=== PATIENT | male | born 1980 | race African-American/Black ===

== ENCOUNTER 2016-09-06 11:56 | Emergency (ER) | payer MEDICARE ==
[~2016-09-06 11:56] MED LIST: AMOXIL500 MG PO; MOTRIN800 MG PO; PHENERGAN W/DM120 ML PO; PREDNISONE10 MG PO; TOBREX OPHTH S2.5 ML OPH
[2016-09-06] MEDS ORDERED: NAPROSYN500 MG PO (12:06)
== END 2016-09-06 13:46 | disposition home or self-care (01) ==
LOC: ED 11:56
DX: S46.911A Strain of unspecified muscle, fascia and tendon at shoulder and upper arm level, right arm, initial encounter (principal); R03.0 Elevated blood-pressure reading, without diagnosis of hypertension; F17.200 Nicotine dependence, unspecified, uncomplicated; X58.XXXA Exposure to other specified factors, initial encounter; Y93.89 Activity, other specified; Y92.9 Unspecified place or not applicable; Y99.9 Unspecified external cause status

== ENCOUNTER 2016-12-21 20:16 | Emergency (ER) | payer MEDICARE ==
[~2016-12-21] VITALS: Ht 175.2 cm; Wt 77.1 kg
[~2016-12-21 20:16] MED LIST changes: +NAPROSYN500 MG PO
[2016-12-21] MEDS ORDERED: KENALOG 0.1%80 GM T (20:45)
[2016-12-21] MEDS ORDERED: ATARAX,VISTARIL50 MG PO (20:45)
== END 2016-12-21 20:47 | disposition home or self-care (01) ==
LOC: ED 20:16
DX: L25.9 Unspecified contact dermatitis, unspecified cause (principal); F17.200 Nicotine dependence, unspecified, uncomplicated

== ENCOUNTER 2020-01-12 15:42 | Emergency (ER) | payer SELFPAY ==
[~2020-01-12] VITALS: Ht 175.2 cm; Wt 74.8 kg
[~2020-01-12 15:42] MED LIST changes: +ATARAX,VISTARIL50 MG PO; +KENALOG 0.1%80 GM T
[2020-01-12] MEDS ORDERED: IBUPROFEN600 MG PO (17:43)
== END 2020-01-12 17:57 | disposition home or self-care (01) ==
LOC: ED 15:42
DX: S76.011A Strain of muscle, fascia and tendon of right hip, initial encounter (principal); Z79.899 Other long term (current) drug therapy; X50.0XXA Overexertion from strenuous movement or load, initial encounter; X50.9XXA Other and unspecified overexertion or strenuous movements or postures, initial encounter; Y93.89 Activity, other specified; Y92.89 Other specified places as the place of occurrence of the external cause; Y99.8 Other external cause status

== ENCOUNTER → 2020-07-15 | Outpatient (CLI) | payer SELFPAY ==
[~2020-07-15] MED LIST changes: +IBUPROFEN600 MG PO; +OMEPRAZOLE20 M3 PO
== END | disposition home or self-care (01) ==
LOC: COVID19 12:58
PROVIDERS: ATTEND Student in an Organized Health Care Education/Training Program
DX: Z20.828 Contact with and (suspected) exposure to other viral communicable diseases (principal)

== ENCOUNTER 2020-08-26 17:07 | Emergency (ER) | payer SELFPAY ==
[~2020-08-26] VITALS: Wt 74.8 kg
[~2020-08-26 17:07] MED LIST changes: -OMEPRAZOLE20 M3 PO
[2020-08-26 19:37] LABS: BASO # 0.1 10*3/uL (0.0-0.1); BASO % 0.5 % (0.0-1.0); EOS # 0.2 10*3/uL (0.0-0.4); EOS % 1.9 % (1.0-4.0); HEMATOCRIT 47.1 % (42.0-52.0); LYMPH # 2.9 10*3/uL (1.3-4.4); LYMPH % 27.4 % (27.0-41.0); MEAN CELL VOLUME 90.9 fl (80.0-94.0); MEAN CORPUSCULAR HGB 29.7 pg (27.0-31.0); MEAN CORPUSCULAR HGB CONC 32.7 g/dl (33.0-37.0); MEAN PLATELET VOLUME 10.1 fl (9.6-12.3); MONO # 0.9 10*3/uL (0.1-1.0); MONO % 8.4 % (3.0-9.0); NEUT # 6.6 10*3/uL (2.3-7.9); NEUT % 61.5 % (47.0-73.0); PLATELET COUNT AUTOMATED 193 10*3/uL (130-400); RED BLOOD COUNT 5.18 10*6/uL (4.50-5.90); RED CELL DISTRI WIDTH 12.3 % (0-14.5); WHITE BLOOD COUNT 10.7 10*3/uL (4.8-10.8)
[2020-08-26 19:51] LABS: ALBUMIN 4.5 gm/dl (3.1-4.5); ALKALINE PHOSPHATASE 77 U/L (45-117); BUN 12 mg/dl (7-24); CHLORIDE 107 mmol/L (98-107); CREATININE 1.14 mg/dL (0.70-1.30); LIPASE 106 U/L (73-393); POTASSIUM 3.8 mmol/L (3.5-5.1); SGOT/AST 57 IU/L (3-35); SGPT/ALT 62 U/L (12-78); SODIUM 142 mmol/L (136-145); TOTAL PROTEIN 7.8 gm/dL (6.4-8.2)
[2020-08-26] MEDS ORDERED: OMEPRAZOLE20 M3 PO (21:59)
== END 2020-08-26 22:03 | disposition home or self-care (01) ==
LOC: ED 17:07
PROVIDERS: Emergency Medicine
DX: R10.822 Left upper quadrant rebound abdominal tenderness (principal); K92.1 Melena; F17.200 Nicotine dependence, unspecified, uncomplicated; Z79.899 Other long term (current) drug therapy

== ENCOUNTER → 2024-06-13 | Outpatient (CLI) | payer SELFPAY ==
[~2024-06-13] MED LIST changes: +OMEPRAZOLE20 M3 PO
== END | disposition home or self-care (01) ==
LOC: RESCLI 14:11
PROVIDERS: ATTEND Student in an Organized Health Care Education/Training Program
DX: N62 Hypertrophy of breast (principal); I10 Essential (primary) hypertension; F17.210 Nicotine dependence, cigarettes, uncomplicated; Z98.890 Other specified postprocedural states; Z79.899 Other long term (current) drug therapy

== ENCOUNTER → 2024-06-15 | Outpatient (CLI) | payer SELFPAY ==
[2024-06-15 08:24] LABS: BASO % 0.5 % (0.0-1.0); EOS # 0.3 10*3/uL (0.0-0.4); EOS % 3.5 % (1.0-4.0); HEMATOCRIT 46.4 % (42.0-52.0); LYMPH # 2.2 10*3/uL (1.3-4.4); LYMPH % 29.7 % (27.0-41.0); MEAN CELL VOLUME 95.9 fl (80.0-94.0); MEAN CORPUSCULAR HGB 30.4 pg (27.0-31.0); MEAN CORPUSCULAR HGB CONC 31.7 g/dl (33.0-37.0); MEAN PLATELET VOLUME 10.4 fl (9.6-12.3); MONO # 0.6 10*3/uL (0.1-1.0); MONO % 7.8 % (3.0-9.0); NEUT # 4.3 10*3/uL (2.3-7.9); NEUT % 58.1 % (47.0-73.0); PLATELET COUNT AUTOMATED 185 10*3/uL (130-400); RED BLOOD COUNT 4.84 10*6/uL (4.50-5.90); RED CELL DISTRI WIDTH 12.2 % (0-14.5); WHITE BLOOD COUNT 7.5 10*3/uL (4.8-10.8)
[2024-06-15 08:45] LABS: ALKALINE PHOSPHATASE 79 U/L (46-116); BUN 12 mg/dl (9-23); CHLORIDE 106 mmol/L (98-107); SGPT/ALT 22 U/L (5-49); TOTAL PROTEIN 6.8 gm/dL (6.0-8.0)
[2024-06-19 12:07] LABS: TESTOSTERONE FREE, (DIRECT) 12.4 pg/mL (6.8-21.5)
== END | disposition home or self-care (01) ==
LOC: LAB 07:44
PROVIDERS: Student in an Organized Health Care Education/Training Program; ATTEND Student in an Organized Health Care Education/Training Program
DX: I10 Essential (primary) hypertension (principal); N62 Hypertrophy of breast

== ENCOUNTER → 2024-06-20 | Outpatient (CLI) | payer MEDICAID | END | disposition home or self-care (01) | LOC: RESCLI 16:07 | PROVIDERS: ATTEND Internal Medicine | DX: I10 Essential (primary) hypertension (principal); Z79.899 Other long term (current) drug therapy; Z98.890 Other specified postprocedural states; Z83.3 Family history of diabetes mellitus ==